=== PATIENT | female | born 1980 | race Caucasian/White ===

== ENCOUNTER 2019-05-25 11:04 | Emergency (ER) | payer OTHER ==
[2019-05-25] MEDS ORDERED: Al Hydrox/Mg Hydrox/Simet LIQ* 30 ML UDC PO ONE (11:31)
[2019-05-25] MEDS ORDERED: Acetaminophen TAB* 325 MG PO ONE (11:31)
[2019-05-25 12:21] LABS: ABS Lymphocytes 0.2 10^3/ul (1.0-4.8); ABS Monocytes 0.1 10^3/ul (0-0.8); ABS Neutrophils 7.7 10^3/ul (1.5-7.7); Eosinophil % 0.4 %; Hematocrit 42 % (35-47); Hemoglobin 14.4 g/dL (12.0-16.0); Lymphocyte % 2.9 %; Mean Corpuscular HGB Conc 35 g/dL (31-36); Mean Corpuscular Hemoglobin 32 pg (27-31); Mean Corpuscular Volume 93 fL (80-97); Mean Platelet Volume 10.2 fL (7.4-10.4); Platelet Count 213 10^3/uL (150-450); Red Blood Count 4.51 10^6 /uL (3.70-4.87); Red Cell Distribution Width 13 % (10-15); White Blood Count 8.1 10^3/uL (3.5-10.8)
[2019-05-25 12:34] LABS: INR 1.14 (0.82-1.09)
[2019-05-25 12:37] LABS: Albumin 4.3 g/dL (3.2-5.2); BUN/Creatinine Ratio 13.2 (8-20); Calcium 9.7 mg/dL (8.6-10.3); EGFR African American 70.2 (>60); Globulin 4.1 g/dL (2-4); Potassium 3.3 mmol/L (3.5-5.0); Total Bilirubin 0.5 mg/dL (0.2-1.0); Total Protein 8.4 g/dL (6.4-8.9)
--- NOTE | 2019-05-25 13:04 | ED ---
HPI Chest Pain - HPI Summary HPI Summary: This patient is a 39-year-old female who presents to the ED with midsternal chest pain. He has been complaining of some intermittent chest pain over the past 2 weeks. She describes this pain sometimes as a pressure and sometimes as a burning. She does endorse some GERD symptoms. Symptoms are rated a 7/10. Patient states she has had some throat pain and was prescribed abx (levaquin and doxycycline) for a possible strep throat and bronchitis. She had a chest x- ray and strep both of which were negative last week. She states she continues to have symptoms. She is very tearful on exam. She denies any shortness of breath. Denies any cough or congestion at this time. She has been denying any fevers, sweats, chills. She states her only symptom at this time is midsternal chest pain, currently rating this pain at a 2/10, however over the past few weeks it has been a 7/10. No cardiac history. She does take hydrochloric when she has Sjogren syndrome. But denies any other medications. Medications and allergies were reviewed. - History of Current Complaint Chief Complaint: EDGeneral Time Seen by Provider: 05/25/19 11:06 Hx Obtained From: Patient Onset/Duration: Started Weeks Ago Timing: Constant Initial Severity: Mild Current Severity: Mild Pain Intensity: 5 Pain Scale Used: 0-10 Numeric Chest Pain Location: Mid Sternal Chest Pain Radiates: No Character: Burning, Dull/Aching Aggravating Factor(s): Nothing Alleviating Factor(s): Nothing Associated Signs and Symptoms: Negative: Chest Pain, Vision Changes, Lightheadedness, Diaphoresis, Nausea, Wheezing, Nasal Congestion, URI, Hoarseness, Sinus Discomfrot - Risk Factors Pulmonary Embolism Risk Factors: Negative TAD Risk Factors: Negative - Allergy/Home Medications Allergies/Adverse Reactions: Allergies Allergy/AdvReac Type Severity Reaction Status Date / Time cephalexin [From Keflex] Allergy Hives Verified 05/25/19 12:05 erythromycin base Allergy Vomiting Verified 05/25/19 12:05 Penicillins Allergy Hives Verified 05/25/19 12:05 Home Medications: Home Medications NK [No Home Medications Reported] 05/25/19 [History Confirmed 05/25/19] PMH/Surg Hx/FS Hx/Imm Hx Previously Healthy: Yes - Immunization History Hx Pertussis Vaccination: No Immunizations Up to Date: Yes Infectious Disease History: No Infectious Disease History: Denies: Traveled Outside the [place] in Last 30 Days - Social History Occupation: Employed Full-time Lives: With Family Alcohol Use: None Hx Substance Use: No Substance Use Type: Reports: None Smoking Status (MU): Never Smoked Tobacco Review of Systems Negative: Fever, Chills, Fatigue, Skin Diaphoresis Positive: Sore Throat. Negative: Ear Ache, Nasal Discharge Positive: Chest Pain. Negative: Palpitations Negative: Shortness Of Breath, Cough Negative: Arthralgia, Myalgia Skin: Negative Neurological/Mental Status: Negative All Other Systems Reviewed And Are Negative: Yes Physical Exam Triage Information Reviewed: Yes Vital Signs On Initial Exam: Initial Vitals Temp Pulse Resp BP Pulse Ox 98.1 F 79 16 97/61 99 05/25/19 12:02 05/25/19 12:02 05/25/19 12:02 05/25/19 12:02 05/25/19 12:02 Vital Signs Reviewed: Yes Appearance: Positive: Well-Appearing, Well-Nourished Skin: Positive: Warm, Skin Color Reflects Adequate Perfusion Head/Face: Positive: Normal Head/Face Inspection Eyes: Positive: EOMI, DEEPAK, Conjunctiva Clear Neck: Positive: Supple, No Lymphadenopathy Respiratory/Lung Sounds: Positive: Clear to Auscultation, Breath Sounds Present Cardiovascular: Positive: RRR, Pulses are Symmetrical in both Upper and Lower Extremities Musculoskeletal: Positive: Strength/ROM Intact Neurological: Positive: Sensory/Motor Intact, Alert, Oriented to Person Place, Time, Speech Normal Psychiatric: Positive: Normal, Affect/Mood Appropriate AVPU Assessment: Alert Procedures - Sedation Patient Received Moderate/Deep Sedation with Procedure: No Diagnostics - Vital Signs Vital Signs Temp Pulse Resp BP Pulse Ox 05/25/19 12:02 98.1 F 79 16 97/61 99 - Laboratory Lab Results: Lab Results 05/25/19 05/25/19 05/25/19 Range/Units 11:59 11:59 11:59 WBC 8.1 (3.5-10.8) 10^3/uL RBC 4.51 (3.70-4.87) 10^6 /uL Hgb 14.4 (12.0-16.0) g/dL Hct 42 (35-47) % MCV 93 (80-97) fL MCH 32 H (27-31) pg MCHC 35 (31-36) g/dL RDW 13 (10-15) % Plt Count 213 (150-450) 10^3/uL MPV 10.2 (7.4-10.4) fL Neut % (Auto) 95.5 % Lymph % (Auto) 2.9 % Hemphill % (Auto) 1.1 % Eos % (Auto) 0.4 % Baso % (Auto) 0.1 % Absolute Neuts (auto) 7.7 (1.5-7.7) 10^3/ul Absolute Lymphs (auto) 0.2 L (1.0-4.8) 10^3/ul Absolute Monos (auto) 0.1 (0-0.8) 10^3/ul Absolute Eos (auto) 0.0 (0-0.6) 10^3/ul Absolute Basos (auto) 0.0 (0-0.2) 10^3/ul Absolute Nucleated RBC 0.0 10^3/ul Nucleated RBC % 0.0 INR (Anticoag Therapy) 1.14 H (0.82-1.09) D-Dimer, Quantitative < 200 (Less Than 230) ng/mL Sodium 135 (135-145) mmol/L Potassium 3.3 L (3.5-5.0) mmol/L Chloride 108 (101-111) mmol/L Carbon Dioxide 20 L (22-32) mmol/L Anion Gap 7 (2-11) mmol/L BUN 14 (6-24) mg/dL Creatinine 1.06 H (0.51-0.95) mg/dL Est GFR ( Amer) 70.2 (>60) Est GFR (Non-Af Amer) 58.0 (>60) BUN/Creatinine Ratio 13.2 (8-20) Glucose 117 H (70-100) mg/dL Calcium 9.7 (8.6-10.3) mg/dL Total Bilirubin 0.50 (0.2-1.0) mg/dL AST 14 (13-39) U/L ALT 12 (7-52) U/L Alkaline Phosphatase 61 (34-104) U/L Troponin I 0.00 (<0.03) ng/mL Total Protein 8.4 (6.4-8.9) g/dL Albumin 4.3 (3.2-5.2) g/dL Globulin 4.1 H (2-4) g/dL Albumin/Globulin Ratio 1.0 (1-3) Result Diagrams: 05/25/19 11:59 05/25/19 11:59 Lab Statement: Any lab studies that have been ordered have been reviewed, and results considered in the medical decision making process. Chest Pain Course/Dx - Course Course Of Treatment: On arrival into the ED, the patient appears very anxious. She is afebrile. VS stable. Lungs CTA, RRR. No cervical LAD. No pharyngeal erythema. No maxillary sinus tenderness. No conjunctival injection. Endorsing a clogging in her throat. States she feels she cannot swallow. Airway is patent. Denies any abdominal pain. Continues to eat and drink okay, however states she has been eating less and feels she may have lost 8lbs. Labs WNL. Tested for covid d/t chest pain and sore throat. Pt is given maalox and tylenol. Discussed symptoms with patient and assured patient no other acute findings. She states she "feels better" and is OK for DC at this time. EKG NSR. Trop 0.00. Dimer negative. - Chest Pain Differential Diagnosis/HQI/PQRI: ACS, Angina, Chest Wall, Other: - GERD - Diagnoses Provider Diagnoses: Atypical chest pain Discharge ED - Sign-Out/Discharge Documenting (check all that apply): Patient Departure - Discharge Plan Condition: Stable Disposition: HOME Referrals: Pretty Belle CARE ATTENDANT [Primary Care Provider] - Additional Instructions: As you are not having any evidence of a bacterial illness - I would advise to stop taking the antibiotics Ibuprofen 600mg three times daily Maalox up to 6 x daily for heartburn If symptoms become worse - please return to the ED - Billing Disposition and Condition Condition: STABLE Disposition: Home - Attestation Statements Provider Attestation: I was available for consult. This patient was seen by the ATILIO. The patient was not presented to, seen by, or examined by me. Khurram Weston MD
[2019-05-25 13:32] VITALS: BP 106/72
== END 2019-05-25 13:31 | disposition home or self-care (01) ==
LOC: ED 11:04
DX: R07.89 Other chest pain (principal); J02.9 Acute pharyngitis, unspecified; Z88.0 Allergy status to penicillin; Z88.8 Allergy status to other drugs, medicaments and biological substances
CPT/HCPCS: 36415; 71045; 80053; 84484; 85025; 85379; 85610; 87635; 93005; 99283; A9270-GY

== ENCOUNTER 2019-05-30 | Observation (INO) | payer OTHER ==
[2019-05-30] MEDS ORDERED: NS 0.9% 1000 ML** 1,000 ML IV SCH (04:00)
[2019-05-30] MEDS ORDERED: Morphine INJ* 2 MG/ML 1 ML SYRINGE (TWO MG - NEW SYRINGE VERSION) IV PRN (04:01)
[2019-05-30] MEDS ORDERED: Acetaminophen TAB* 325 MG PO PRN (04:01)
[2019-05-30] MEDS ORDERED: Ondansetron INJ* 2 MG/ML VIAL IV PRN (04:01)
[2019-05-30] MEDS ORDERED: Al Hydrox/Mg Hydrox/Simet LIQ* 30 ML UDC PO ONE (04:30)
[2019-05-30] MEDS ORDERED: Sucralfate TAB* 1 GM PO ONE (04:31)
[2019-05-30] MEDS ORDERED: Lidocaine 2% VISCOUS* 15 ML UDC PO ONE (04:31)
[2019-05-30] MEDS ORDERED: Pantoprazole IV* 40 MG IV SCH (05:00)
--- NOTE | 2019-05-30 06:22 | HP ---
ADMISSION HISTORY AND PHYSICAL: DATE OF ADMISSION: 05/30/19 PRIMARY CARE PHYSICIAN: Dr. Belle. PROVIDER: Johnie Bravo NP. ATTENDING PHYSICIAN: Dr. Agustin.* (DICTATED BY JOHNIE BRAVO NP) CHIEF COMPLAINT: Chest pain. HISTORY OF PRESENT ILLNESS: This is a 39-year-old female with a past medical history of Sjogren syndrome, who has been having 2 weeks of ongoing chest pain. Originally, the pain was in her throat as well as mid sternal. The daughter had strep and so her primary care has put her on antibiotics for strep throat, which did not help. She then went to the emergency room in [place] and was diagnosed with pneumonia and given prednisone as well as additional antibiotics though, however, none of this helped with the chest pain. She describes the pain as midsternal, though week ago it began radiating into her jaw. She describes it as a sharp as well as chest pressure and nothing seems to make it better and it was worse after taking nitroglycerin. She has been unable to eat or drink well for the past 1-1/2 to 2 weeks. She has been taking ibuprofen twice a day, which did dull the pain. She was tested for COVID and the results were negative. The pressure and discomfort were always there. It did not ever go away. She is also reporting some pressure in her ears. She has had diarrhea for the past 2.5 weeks, having 3 loose stools a day. The patient was a direct admit from [place], and in their emergency room, they lily labs and performed a chest x-ray and CTA. She was negative for pulmonary embolism or aortic dissection. Her chest x-ray was unremarkable. Both in our emergency room and in [place], she was noted to have some mild hypokalemia and last night she received a combination of both oral and IV potassium. She also did receive Protonix IV, which did not seem to touch her pain. Pain was only relieved mostly with morphine, though as I have stated the nitroglycerin had made it worse. She was admitted under the hospitalist service. PAST MEDICAL HISTORY: Sjogren syndrome. PAST SURGICAL HISTORY: None. HOME MEDICATIONS: 1. 200 mg p.o. at bedtime. 2. Ibuprofen 400 mg p.o. b.i.d. p.r.n. ALLERGIES: CEPHALEXIN, ERYTHROMYCIN, and PENICILLINS. FAMILY HISTORY: Her mother had an AK. Her grandfather had lung, prostate, and bone cancer, and her aunt had breast cancer. SOCIAL HISTORY: She quit smoking 10 years ago, had been a 1- to 2-pack a day smoker for 10 to 15 years. She rarely drinks alcohol. Denies any recreational substance use. She is a supply assistant. She is and has 2 children. REVIEW OF SYSTEMS: A 12-point system review was performed which was positive for chest pain and pressure, burning in her throat, discomfort in her jaw, ear pressure, nausea, diarrhea, but negative for shortness of breath, fever, chills , palpitations. PHYSICAL EXAMINATION GENERAL: This is a well-developed woman seen resting in the bed, anxious though , otherwise in no acute distress. VITAL SIGNS: 97.5 Fahrenheit, 66 pulse, 16 respirations, 100% oxygen on room air, 113/67 blood pressure. HEENT: Conjunctivae pink and moist. PERRLA. EOMs intact. Oropharynx clear. Mucous membranes are moist. NECK: Supple. RESPIRATORY: Lung sounds clear throughout bilaterally on room air. No accessory muscle use noted. CARDIAC: S1, S2 present. Heart rate regular. No murmurs, gallops, or rubs appreciated. ABDOMEN: Soft, nontender, nondistended with positive bowel sounds x4. MUSCULOSKELETAL: Able to move all extremities. No clubbing or cyanosis of the digits. NEUROLOGIC: Sensation intact to light touch. No focal deficits appreciated. SKIN: Intact. PSYCH: She is alert and oriented x4. Thought content organized though anxious the entire time. DIAGNOSTIC STUDIES: Chest x-ray performed in [place] showed no active cardiopulmonary disease, and CTA of the chest showed no pulmonary embolism or aortic dissection. PERTINENT LAB DATA: Labs taken in the emergency room at [place] on 05/29/19 around 2034 showed WBCs of 9.09, RBCs 4.12, hemoglobin 12.7, hematocrit 36.4, creatinine 0.1, potassium 3.1, anion gap of 12, troponin 0.01 which is up from 0.00. ASSESSMENT AND PLAN: My impression is that this is a 39-year-old female with a past medical history significant for Sjogren syndrome, who is being admitted on 05/30/19 for chest pain. 1. Chest pain. She has had several EKGs that have showed T-wave inversions in V1 through V3. Subsequent EKG was done upon arrival, which showed T-wave inversions in V1 only, though still she was continuing to have 4/10 chest pain. I ordered subsequent troponin as well as lipid profile, hemoglobin A1c, CBC and BMP for 6 a.m. Her blood pressures have been maintained in the one-teens to 120s. So, therefore, I do not suspect her chest pain is related to hypertension and order for a transthoracic echocardiogram and a stress test has been placed. Recommended possibly following up with Cardiology. She is n.p.o. for testing. We will have normal saline at 75 mL an hour for hydration, and she will be kept on telemetry monitoring. I believe there is a component of cardiac ischemia; however, I am concerned about her frequent use of ibuprofen for the past several weeks and the fact that though she is not anemic, she has had a hemoglobin drop of 2 points between 05/25/19 and yesterday. Should her blood work this morning come back even lower, I will order a stool guaiac and possibly recommend contacting GI. I ordered 1-time dose of lidocaine, sucralfate, and Maalox to see if this would change the nature of her chest discomfort. 2. Sjogren syndrome. She may continue her . 3. DVT prophylaxis: She has no risk factors. I encouraged ambulation. 4. Code status: Is a full code. DISPOSITION: Admit inpatient to [address] [place] [address]. CONDITION: Guarded. TIME SPENT: Time spent on the patient is 60 minutes with 30 of that spent face to face. JOHNIE BRAVO, PIE CRUST MIXER [id number]/CPS #: [id number] RIGO
[2019-05-30 06:46] LABS: ABS Eosinophils 0.1 10^3/ul (0-0.6); ABS Lymphocytes 1.8 10^3/ul (1.0-4.8); ABS Monocytes 0.7 10^3/ul (0-0.8); ABS Neutrophils 4.1 10^3/ul (1.5-7.7); Eosinophil % 1.2 %; Hematocrit 34 % (35-47); Hemoglobin 11.9 g/dL (12.0-16.0); Lymphocyte % 26.4 %; Mean Corpuscular HGB Conc 35 g/dL (31-36); Mean Corpuscular Hemoglobin 32 pg (27-31); Mean Corpuscular Volume 91 fL (80-97); Mean Platelet Volume 9.7 fL (7.4-10.4); Platelet Count 207 10^3/uL (150-450); Red Blood Count 3.74 10^6 /uL (3.70-4.87); Red Cell Distribution Width 13 % (10-15); White Blood Count 6.7 10^3/uL (3.5-10.8)
[2019-05-30 07:08] LABS: Anion Gap 4 mmol/L (2-11); BUN/Creatinine Ratio 12.1 (8-20); Blood Urea Nitrogen 11 mg/dL (6-24); CO2 Carbon Dioxide 22 mmol/L (22-32); Calcium 8.6 mg/dL (8.6-10.3); Chloride 111 mmol/L (101-111); Cholesterol 89 mg/dL; EGFR African American 83.7 (>60); EGFR Non-African American 69.2 (>60); Glucose 94 mg/dL (70-100); HDL Cholesterol 33.7 mg/dL; LDL Cholesterol 39 mg/dL; Potassium 3.6 mmol/L (3.5-5.0); Sodium 137 mmol/L (135-145); Triglycerides 84 mg/dL
--- NOTE | 2019-05-30 10:08 | ECHO ---
*[facility]* [place] [address] Fax #: [phone] Transthoracic Echocardiogram Patient: Reema Reynolds : 1980 Study Date: 05/30/2019 Age: 39 Gender: F HR: 70 bpm Height: 68 in /172.7 cm BSA: 1.72 m^2 Weight: 132.7 lb /60.3 kg BMI: 20.2 kg/m^2 *Nuclear Waste Process Operator: * Samaria Arthur *Referring Physician: * Delmis Rouse *Reading Physician: * Sung Car MD Indications: Chest Pain, unspecified. History: Risk factors: Former tobacco use. Conclusions Summary: - Left ventricle: Systolic function is normal. The estimated ejection fraction is 55-60%. Wall motion is normal; there are no regional wall motion abnormalities. - Mitral valve: There is trace regurgitation. - Aortic valve: Transvalvular velocity is within the normal range. There is no evidence of stenosis. - Pulmonary arteries: Systolic pressure can not be accurately estimated. - Study data: No prior study is available for comparison. Study data: Transthoracic echocardiogram. Procedure: Transthoracic echocardiography was performed. Image quality was excellent. Complete 2D, spectral Doppler, and color flow Doppler. Location: Procedure room. Patient status: Inpatient. Patient room number: 441-02. No prior study is available for comparison. Rhythm: Normal sinus rhythm. Findings Left ventricle: The cavity size is normal. Wall thickness is normal. Systolic function is normal. The estimated ejection fraction is 55-60%. Wall motion is normal; there are no regional wall motion abnormalities. Left ventricular diastolic function parameters are normal. Right ventricle: The cavity size is normal. Systolic function is normal. Left atrium: The atrium is normal in size. Right atrium: The atrium is normal in size. Atrial septum: No defect or patent foramen ovale is identified. Mitral valve: The valve is structurally normal. There is no evidence of stenosis. There is trace regurgitation. Aortic valve: The valve is structurally normal. The valve is trileaflet. Cusp separation is normal. Transvalvular velocity is within the normal range. There is no evidence of stenosis. There is no significant regurgitation. Tricuspid valve: The valve is structurally normal. There is no evidence of stenosis. There is trace regurgitation. Pulmonic valve: The valve is structurally normal. There is no evidence of stenosis. There is trace to mild regurgitation. Aorta: The aortic arch appears normal. Pericardium: There is no significant pericardial effusion. Pulmonary arteries: Systolic pressure can not be accurately estimated. Systemic veins: Inferior vena cava: The vessel is normal in size. There is (>= 50%) respiratory change in the IVC dimension. Pulmonary veins: The Pulmonary veins appear normal. Measurements Left ventricle Value Ref Aortic valve Value Ref ALLA, LAX 3.9 cm 3.8 - 5.2 Peak v, S 1.17 m/sec ---- ESD, LAX 2.6 cm 2.2 - 3.5 VTI, S 24.5 cm ---- FS, LAX 33 % 27 - 45 Mean grad, S 3.0 mm Hg ---- PW, ED, LAX (H) 1.0 cm 0.6 - 0.9 Peak grad, S 5.0 mm Hg ---- E', lat carmen, TDI 13.8 cm/sec >=10.0 E/e', lat carmen, 6 Mitral valve Value Ref TDI Peak E 0.85 m/sec ---- Peak A 0.54 m/sec ---- LVOT Value Ref Decel time 222 ms ---- Peak luli, S 1.08 m/sec Peak grad, D 2.9 mm Hg ---- Mean grad, S 3 mm Hg Peak E/A ratio 1.6 ---- Ventricular septum Value Ref Pulmonic valve Value Ref IVS, ED (H) 1.0 cm 0.6 - 0.9 Peak v, S 0.78 m/sec ---- Peak grad, S 2.0 mm Hg ---- Right ventricle Value Ref ALLA, LAX 3.0 cm Aortic root Value Ref ALLA minor ax, 3.1 cm 1.9 - 3.5 Root diam 3.3 cm <3.4 A4C mid Ascending aorta Value Ref Left atrium Value Ref AAo AP diam, S 2.9 cm ---- AP dim, ES (L) 2.60 cm 2.70 - 3.80 Aortic arch Value Ref ML dim, A4C 3.8 cm Arch diam 1.7 cm ---- SI dim, A4C 4.4 cm Vol/bsa, ES, 1-p 16 ml/m^2 11 - 40 Decending aorta Value Ref A4C Genevieve peak luli 0.52 m/sec ---- Right atrium Value Ref Inferior vena cava Value Ref SI dim, ES 3.7 cm 3.4 - 5.3 Diam 1.9 cm ---- ML dim, ES, A4C 3.1 cm 2.6 - 4.4 SI dim, ES, A4C 3.7 cm 3.4 - 5.3 SI dim/bsa, ES, 2.2 cm/m^2 1.9 - 3.1 A4C Legend: (L) and (H) be values outside specified reference range. Prepared and electronically signed by Sung Car MD 05/30/2019 10:07
[2019-05-30] MEDS ORDERED: hydrOXYzine HCL TAB* 50 MG PO PRN (10:32)
[2019-05-30] MEDS ORDERED: ALPRAZolam TAB* 0.25 MG PO ONE (10:32)
[2019-05-30] MEDS ORDERED: Famotidine SUSP ORALSYR 8 MG/ML PO ONE (10:32)
[2019-05-30 10:38] LABS: C Reactive Protein < 1.00 mg/L (<8.01)
[2019-05-30 12:27] VITALS: BP 115/68
--- NOTE | 2019-05-30 14:49 | DS ---
CC: Dr. Pretty Belle * DISCHARGE SUMMARY: DATE OF ADMISSION: 05/30/19 DATE OF DISCHARGE: 05/30/19 PRIMARY CARE PROVIDER: Dr. Pretty Belle. ATTENDING PHYSICIAN: Dr. Heather Nixon.* (DICTATED BY CATRACHO BARNEY NP) PRIMARY DIAGNOSIS: Chest pain, no evidence of acute coronary syndrome. SECONDARY DIAGNOSIS: Sjogren's syndrome. STUDIES WHILE IN THE HOSPITAL: 1. EKG on 05/30/19 shows normal sinus rhythm with a rate of 70, prominent R- waves or possibly delta waves in precordial leads, QTc 461. 2. Transthoracic echocardiogram on 05/30/19 reads as left ventricular systolic function is normal. The estimated ejection fraction is 55% to 60%. Wall motion is normal and there are no regional wall motion abnormalities. There is trace MR. Aortic valve transvalvular velocity is within the normal range. There is no evidence of . Systolic pressure in the pulmonary arteries cannot be accurately estimated. No prior studies available for comparison. 3. Exercise stress test on 05/30/19 reads as normal maximal stress echo. No evidence of ischemia. Low risk study. HISTORY OF PRESENT ILLNESS AND HOSPITAL COURSE: Ms. Reynolds is a 39-year-old female with past medical history of Sjogren's syndrome, who presented to the emergency room on 05/30/19 with complaints of chest pain. Please see the history and physical by Delmis Rouse NP, for a complete summary of the events leading up to this hospitalization. In short, the patient was recently diagnosed with pneumonia. Since that time, she has had 2 weeks of ongoing chest pain, which she describes as burning and midsternal. She had been working with her PCP, though pain was not improving with ibuprofen, and so out of concern, she presented to the emergency room. In the emergency room, she received nitro, which she reports made the pain worse. She was initially in [facility] where she had a CTA which was negative for pulmonary embolism or aortic dissection and a chest x-ray was unremarkable. She was admitted by the hospitalist service for inpatient stress test. The patient had an uneventful night. She continues to have pain in the midsternal area, which she rates approximately 4/10. She reports that lying flat on her back decreases the pain somewhat and lying on her side increases the pain. Otherwise, there are no aggravating or alleviating factors. She did have a treadmill stress test this morning which was noted to be normal and an echo which was also noted to be normal. CRP was also normal, so there is no evidence of pericarditis and ACS has been ruled out. At this point, I think the most likely cause of her chest pain is GERD. She does report that this is a burning pain. Her PCP recently started her on omeprazole, though she has only taken a few days of that medication. I will give her some famotidine today to see if we can improve pain with this. I think pain is also provoked by anxiety and this may be exacerbating her current pain. Of note, the patient did have an EKG, which shows possible delta waves which may be concerning for Pahfe-Oduysqfun-Prbyf pattern versus right ventricular hypertrophy. I did inform the patient that there was an incidental finding of some conduction abnormalities and she is agreeable to outpatient followup for this. At this point, it appears as though there are no acute problems necessitating any further hospital stay, so unfortunately even though the patient continues to have pain, she will need to symptomatically manage this pain at home. She is understanding of this and is agreeable to this plan. She is alert and oriented x4 with no focal neurological deficits. Heart has a regular rate and rhythm without murmurs, rubs, or gallops. Lungs are clear to auscultation without rhonchi, wheezes, or rales. Physical exam is otherwise benign. Ms. Reynolds is stable for discharge. Most recent vitals are as follows: Temp 98.1, heart rate 75, respiratory rate 16, oxygen saturation 100% on room air, blood pressure 115/68. DISCHARGE MEDICATIONS: New: 1. Hydroxyzine 50 mg p.o. q.6 hours p.r.n. anxiety. 2. Ranitidine 150 mg p.o. b.i.d. p.r.n. heartburn. Continued: 1. Plaquenil 200 mg p.o. daily. 2. Omeprazole 20 mg p.o. daily. Discontinued: Ibuprofen. DISCHARGE PLAN: Ms. Reynolds will be discharged home. Activity will be as tolerated. Diet will be regular as tolerated. Medications are noted above. I have prescribed her a small supply of hydroxyzine as I do think some of her symptoms are anxiety related and I have prescribed her some ranitidine, which she can use as needed, though I would anticipate and hope that once she continues on the omeprazole, she will feel some relief in her symptoms if this is indeed GERD related. I have advised her for pain she should be using Tylenol and not ibuprofen. It is possible that this ibuprofen use is contributing to some of her symptoms as it may be causing a mild gastritis. She should follow up with her primary care provider in the next 4 to 7 days. As noted above, she should follow up with a senior health educator as an outpatient for further evaluation of conduction abnormalities incidentally noted on her EKG. She should return to the emergency room or nearest hospital for any worsening of symptoms, shortness of breath, lightheadedness, dizziness, chest discomfort, high fevers, chills, night sweats, loss of consciousness, or any other worrisome signs or symptoms. DISCHARGE CONDITION: Stable. DISCHARGE DISPOSITION: Home. This is a summarized report of a complex medical history and hospital stay. For further details, please see the entire medical record. TIME SPENT: Approximately 40 minutes was spent on this discharge. CATRACHO BARNEY NP [id number]/CPS #: [id number] RIGO
[2019-05-30] MEDS ORDERED: HYDROXYCHLOROQUINE 200 MG PO SCH (21:00)
== END 2019-05-30 14:00 | disposition home or self-care (01) ==
LOC: MEDTELE 03:48 → INTOOBSV 03:48 → MEDTELE 03:48 → UNDOADMOB 03:48
PROVIDERS: ADMIT Family Medicine; ATTEND Hospitalist
DX: R07.9 Chest pain, unspecified (principal); M35.00 Sjogren syndrome, unspecified; R94.31 Abnormal electrocardiogram [ECG] [EKG]; Z88.0 Allergy status to penicillin; Z88.1 Allergy status to other antibiotic agents; Z87.891 Personal history of nicotine dependence; Z82.49 Family history of ischemic heart disease and other diseases of the circulatory system; Z79.899 Other long term (current) drug therapy
CPT/HCPCS: 36415; 80048; 80061; 83036; 84484; 85025; 86140; 93005; 93306; 93351; 96365; 96375; A9270-GY; G0378; J2270; J2405

== ENCOUNTER 2019-05-31 12:04 | Emergency (ER) | payer OTHER ==
[2019-05-31] MEDS ORDERED: ALPRAZolam TAB* 0.5 MG PO ONE (13:13)
--- NOTE | 2019-05-31 13:14 | ED ---
Psychiatric Complaint - HPI Summary HPI Summary: Patient is a 39 y/o F presenting to the ED for a psychiatric complaint. Patient reports feeling anxious and having chest pain for the last 2 1/2 weeks. Patient denies any fever, chills, erythema of eyes, sore throat, shortness of breath, cough, abdominal pain, nausea, vomiting, dysuria, hematuria, myalgia, edema, rash, or dizziness. No aggravating or alleviating factors are reported. Recently , patient had an admission for chest pain and was discharged with a diagnosis of anxiety. During her admission, she denies having her thyroid levels assessed. She saw her PCP on 05/31/19 for a follow up and was recommended to be seen at [facility]. Patient denies having any significant psychiatric history. She denies drug or alcohol use. LNMP is currently. - History Of Current Complaint Chief Complaint: EDPsychosocial Time Seen by Provider: 05/31/19 13:09 Hx Obtained From: Patient Hx Last Menstrual Period: 05/31/19 Onset/Duration: Sudden Onset, Still Present Timing: Constant Severity Initially: Moderate Severity Currently: Moderate Character: Anxious Aggravating Factor(s): Nothing Alleviating Factor(s): Nothing Associated Signs And Symptoms: Positive: Negative Related History: Negative For: Prior Psychiatric Issues - Allergies/Home Medications Allergies/Adverse Reactions: Allergies Allergy/AdvReac Type Severity Reaction Status Date / Time cephalexin [From Keflex] Allergy Hives Verified 05/31/19 12:11 erythromycin base Allergy Vomiting Verified 05/31/19 12:11 Penicillins Allergy Hives Verified 05/31/19 12:11 Home Medications: Home Medications Hydroxychloroquine 200 MG TAB* [Plaquenil 200 MG TAB*] 200 mg PO DAILY 05/30/19 [History Confirmed 05/31/19] hydrOXYzine HCL TAB* [Atarax 25 MG TAB*] 25 mg PO Q8H PRN #15 tab 05/31/19 [Rx] PMH/Surg Hx/FS Hx/Imm Hx Previously Healthy: Yes Endocrine/Hematology History: Reports: Other Endocrine/Hematological Disorders - sjogren's syndrome Denies: Hx Diabetes Cardiovascular History: Reports: Hx Angina Respiratory History: Denies: Hx Asthma, Hx Chronic Obstructive Pulmonary Disease (COPD) Sensory History: Reports: Hx Contacts or Glasses Denies: Hx Legally Blind, Hx Deafness, Hx Hearing Aid Opthamlomology History: Reports: Hx Contacts or Glasses Denies: Hx Legally Blind EENT History: Denies: Hx Deafness Psychiatric History: Reports: Hx Anxiety - Surgical History Surgical History: None Surgery Procedure, Year, and Place: None Infectious Disease History: No Infectious Disease History: Denies: Traveled Outside the [place] in Last 30 Days - Family History Known Family History: Negative: Cardiac Disease, Hypertension, Diabetes - Social History Occupation: Employed Full-time Lives: With Family Alcohol Use: Rare Hx Substance Use: No Substance Use Type: Reports: None Hx Tobacco Use: Yes Smoking Status (MU): Former Smoker Review of Systems Negative: Fever, Chills Negative: Erythema Negative: Sore Throat Positive: Chest Pain Negative: Shortness Of Breath, Cough Negative: Abdominal Pain, Vomiting, Nausea Negative: dysuria, hematuria Negative: Myalgia, Edema Negative: Rash Neurological/Mental Status: Other - Negative dizziness Positive: Anxious All Other Systems Reviewed And Are Negative: Yes Physical Exam - Summary Physical Exam Summary: Constitutional: Well-developed, Well-nourished, Alert. Skin: Warm, Dry HENT: Normocephalic; Atraumatic Eyes: Conjunctiva normal Neck: Musculoskeletal ROM normal neck. (-) JVD, (-) Stridor, (-) Tracheal deviation Cardio: Rhythm regular, rate normal, Heart sounds normal; Intact distal pulses; The pedal pulses are 2+ and symmetric. Radial pulses are 2+ and symmetric. (-) Murmur Pulmonary/Chest wall: Effort normal. (-) Respiratory distress, (-) Wheezes, (-) Rales Abd: Soft, (-) tenderness, (-) Distension, (-) Guarding, (-) Rebound Musculoskeletal: (-) Edema Lymph: (-) Cervical adenopathy Neuro: Alert, Oriented x3. Tremulous. Psych: Mood. Anxious appearing. Triage Information Reviewed: Yes Vital Signs On Initial Exam: Initial Vitals Temp Pulse Resp BP Pulse Ox 98.3 F 85 16 111/69 99 05/31/19 12:05 05/31/19 12:05 05/31/19 12:05 05/31/19 12:05 05/31/19 12:05 Vital Signs Reviewed: Yes Procedures - Sedation Patient Received Moderate/Deep Sedation with Procedure: No Diagnostics - Vital Signs Vital Signs Temp Pulse Resp BP Pulse Ox 05/31/19 12:05 98.3 F 85 16 111/69 99 - Laboratory Result Diagrams: 05/31/19 13:32 05/31/19 13:32 Lab Statement: Any lab studies that have been ordered have been reviewed, and results considered in the medical decision making process. Re-Evaluation - Re-Evaluation First Eval Re-Evaluation Time: 15:13 Change: Unchanged Comment: At 15:13, patient is medically cleared for a mental health evaluation. Course/Dx - Course Course Of Treatment: Patient is a 39 y/o F presenting to the ED for a psychiatric complaint. Patient reports feeling anxious and having chest pain for the last 2 1/2 weeks. Patient denies any fever, chills, erythema of eyes, sore throat, shortness of breath, cough, abdominal pain, nausea, vomiting, dysuria, hematuria, myalgia, edema, rash, or dizziness. Recently, patient had an admission for chest pain and was discharged with a diagnosis of anxiety. During her admission, she denies having her thyroid levels assessed. On exam, tremulous, anxious appearing. In the ED course, patient was given Xanax 0.5 mg PO. At 15:13, patient is medically cleared for a mental health evaluation. On medical record review, patient had an extensive cardiac workup in the hospital during a prior admission. Laboratory results show no significant abnormality. At 15:52, trim operator reports that patients case was reviewed by Dr. Reuben Angeles who will discharge the patient with a diagnosis of anxiety. Patient will follow up with [facility]. Patient will be discharged with a diagnosis of anxiety. - Differential Dx/Clinical Impression Provider Diagnosis: Anxiety - Physician Notifications Discussed Care Of Patient With: Reuben Angeles - At 15:52, trim operator reports that patients case was reviewed by Dr. Reuben Angeles who will discharge the patient with a diagnosis of anxiety. Time Discussed With Above Provider: 15:52 Instructed by Provider To: Other - Discharge Discharge ED - Sign-Out/Discharge Documenting (check all that apply): Patient Departure - Discharge - Discharge Plan Condition: Stable Disposition: HOME Prescriptions: hydrOXYzine HCL TAB* [Atarax 25 MG TAB*] 25 mg PO Q8H PRN #15 tab PRN Reason: Agitation/Anxiety Referrals: Pretty Belle NP [Primary Care Provider] - - Attestation Statements Document Initiated by Scribe: Yes Documenting Scribe: Obdulia Hinkle Provider For Whom Scribe is Documenting (Include Credential): Dontrell Lopez MD Scribe Attestation: Obdulia Turcios, scribed for Dontrell Lopez MD on 05/31/19 at 1612. Status of Scribe Document: Ready
[2019-05-31 13:45] LABS: ABS Basophils 0.1 10^3/ul (0-0.2); ABS Eosinophils 0.1 10^3/ul (0-0.6); ABS Lymphocytes 1.4 10^3/ul (1.0-4.8); ABS Monocytes 0.6 10^3/ul (0-0.8); ABS Neutrophils 6.6 10^3/ul (1.5-7.7); Eosinophil % 0.6 %; Hematocrit 36 % (35-47); Hemoglobin 12.3 g/dL (12.0-16.0); Lymphocyte % 15.6 %; Mean Corpuscular HGB Conc 34 g/dL (31-36); Mean Corpuscular Hemoglobin 32 pg (27-31); Mean Corpuscular Volume 92 fL (80-97); Mean Platelet Volume 9.3 fL (7.4-10.4); Platelet Count 220 10^3/uL (150-450); Red Cell Distribution Width 13 % (10-15); White Blood Count 8.7 10^3/uL (3.5-10.8)
[2019-05-31 14:02] LABS: ALT 9 U/L (7-52); AST 12 U/L (13-39); Albumin 3.5 g/dL (3.2-5.2); Albumin/Globulin Ratio 1.1 (1-3); Alkaline Phosphatase 43 U/L (34-104); BUN/Creatinine Ratio 10.8 (8-20); Blood Urea Nitrogen 10 mg/dL (6-24); CO2 Carbon Dioxide 22 mmol/L (22-32); Calcium 8.7 mg/dL (8.6-10.3); EGFR African American 81.6 (>60); EGFR Non-African American 67.5 (>60); Globulin 3.3 g/dL (2-4); Glucose 88 mg/dL (70-100); Potassium 3.6 mmol/L (3.5-5.0); Sodium 138 mmol/L (135-145); Total Protein 6.8 g/dL (6.4-8.9)
[2019-05-31 14:04] LABS: Anion Gap 4 mmol/L (2-11); Chloride 112 mmol/L (101-111)
[2019-05-31 14:19] LABS: Acetaminophen < 15 mcg/mL; Alcohol < 10 mg/dL (<10); Salicylate < 2.50 mg/dL (<30)
[2019-05-31 14:34] LABS: TSH (Thyroid Stimulating Horm) 0.53 mcIU/mL (0.34-5.60)
[2019-05-31 16:20] VITALS: BP 93/49
== END 2019-05-31 16:12 | disposition home or self-care (01) ==
LOC: ED 12:04
DX: F41.9 Anxiety disorder, unspecified (principal); F07.9 Unspecified personality and behavioral disorder due to known physiological condition; Z88.8 Allergy status to other drugs, medicaments and biological substances; Z79.899 Other long term (current) drug therapy; M35.00 Sjogren syndrome, unspecified
CPT/HCPCS: 36415; 80053; 80320; 80329; 84443; 85025; 99283; A9270-GY; G0480